=== PATIENT | male | born 2000 | race Two or more races ===

== ENCOUNTER 2020-08-05 00:11 | Emergency (ER) | payer OTHER ==
[~2020-08-05] VITALS: Ht 180.3 cm; Wt 102.1 kg
[2020-08-05] MEDS ORDERED: AMOX-CLAV 875-1 EAC1 PO (02:28)
[2020-08-05] MEDS ORDERED: KETO10TA2 PO (02:28)
[2020-08-05] MEDS ORDERED: MUPIROCIN22 GM TOP (02:28)
== END 2020-08-05 02:34 | disposition home or self-care (01) ==
LOC: ER 00:11
DX: L02.11 Cutaneous abscess of neck (principal)

== ENCOUNTER 2020-09-28 20:28 | Emergency (ER) | payer OTHER ==
[~2020-09-28] VITALS: Ht 180.3 cm; Wt 97.5 kg
[~2020-09-28 20:28] MED LIST: AMOX-CLAV 875-1 EAC1 PO; KETO10TA2 PO; MUPIROCIN22 GM TOP
== END 2020-09-28 22:48 | disposition home or self-care (01) ==
LOC: ER 20:28
DX: F31.10 Bipolar disorder, current episode manic without psychotic features, unspecified (principal); F41.8 Other specified anxiety disorders; H92.09 Otalgia, unspecified ear